=== PATIENT | female | born 1980 | race Caucasian/White ===

== ENCOUNTER 2022-01-24 14:50 | Emergency (ER) | payer OTHER, SELFPAY ==
[2022-01-24 15:35] VITALS: BP 139/85; PULSE 79; RESP 18; TEMP 36.5; O2SAT 100; BMI 32.8
--- NOTE | 2022-01-24 17:15 | CRLHL7_ITS ---
For Patients: As a result of the Century Cures Act, medical imaging exams and procedure reports are released immediately into your electronic medical record. You may view this report before your referring provider. If you have questions, please contact your health care provider. INDICATION: Right lower quadrant pain. TECHNIQUE: CT abdomen and pelvis acquired with 100 cc Omnipaque 350 IV contrast. COMPARISON: None. FINDINGS: Lower chest: Unremarkable. Liver: Unremarkable. Normal in size and attenuation. No suspicious masses. Gallbladder and bile ducts: Unremarkable. No stones or inflammation. No biliary dilatation. Pancreas: Unremarkable. No mass or inflammation. Spleen: Unremarkable. Normal in size. No masses. Adrenal glands: Unremarkable. No nodules. Kidneys: Unremarkable. No suspicious masses, stones, or hydronephrosis. GI tract: Mild colonic diverticulosis. Focal area of fat necrosis about the sigmoid colon. Normal in caliber. No sign of mass or inflammation. Normal appendix. Vasculature: Abdominal aorta is normal in caliber. Mesenteric arteries are patent. Lymph nodes: No lymphadenopathy. Peritoneum/Abdominal Wall: Unremarkable. No sign of mass or infiltration. No free air or significant free fluid. Pelvis: Unremarkable. Bones: Nonspecific sclerotic changes about the bilateral sacral bones adjacent to the SI joint. IMPRESSION: Findings suggestive of acute uncomplicated diverticulitis. No drainable fluid collections. Please note that all CT scans at this facility use dose modulation, iterative reconstruction, and/or weight-based dosing when appropriate to reduce radiation dose to as low as reasonably achievable. Dictated by Perry Breen MD @ 01/24/2022 6:42:26 PM (Electronically Signed)
--- NOTE | 2022-01-24 17:18 | ED_ITS ---
HPI - Abdominal Pain General Chief Complaint: Abdominal Pain Stated Complaint: Abdominal pain Time Seen by Provider: 01/24/22 16:33 History of Present Illness HPI narrative: This 41-year-old female comes in reporting 3 days of abdominal pain. She states the pain is in her lower abdomen and is now more localized in the right lower quadrant. She does not report any specific nausea or intolerance of food. She has not had any fevers. She states that the pain is worse with certain mov ements. Related Data Home Medications Medication Instructions Recorded Confirmed duloxetine 30 mg capsule,delayed cap PO 01/24/22 01/24/22 release Allergies Allergy/AdvReac Type Severity Reaction Status Date / Time No Known Drug Allergies Allergy Verified 01/24/22 17:56 Review of Systems Status of ROS Reports: 10 or more systems reviewed and unremarkable except as noted in History and below Narrative Constitutional: No fevers, no weight gain or loss. Eyes: No discharge. No vision changes. HENT: No congestion, no sore throat, no ear pain. Cardiovascular: No chest pain, no palpitations. Respiratory: No shortness of breath, no wheezes, no cough. Gastrointestinal: No vomiting, no diarrhea. Right lower quadrant abdominal pain. Genitourinary: No dysuria, no hematuria. Musculoskeletal: Normal range of motion. Skin: No rashes, no pruritis. Neurological: No dizziness, weakness, sensory change, speech change. Endo/Heme/Allergies: No bruising or bleeding. No polydipsia. Pysch: no suicidality, no anxiety, no insomnia. All other systems reviewed and are negative. PFSH PFSH Social History Smoking Status: Former smoker Do you use any of these nicotine containing products: None Second hand tobacco smoke exposure: No How often do you have a drink containing alcohol: 2-3 times a week How many standard drinks containing alcohol do you have on a typical day: 5 or 6 How often do you have six or more drinks on one occasion: Weekly AUDIT-C Alcohol total score: 8 Non-prescribed substance use: denies use Exam Narrative: Exam Narrative: Constitutional: Well-developed, well-nourished, no acute distress. HEENT: Normocephalic, atraumatic. Neck: Normal range of motion. Nontender. Supple. Heart: Regular. No murmurs. Normal rate. Intact distal pulses. Lungs: Clear to auscultation. No chest discomfort. No wheezes, rhonchi, or rales. Abdomen: Decreased bowel sounds. Tenderness localized at McBurney's point. D istinct rebound tenderness. Genitalia: Deferred. Back: No midline tenderness. Normal range of motion. Extremities: Normal range of motion. No injury. Skin: Intact. No rash. Warm. No erythema or pallor. Neurologic: No altered sensation. No weakness. Alert and oriented. Psychiatric: No suicidality. No anxiety or depression. No insomnia. Nursing notes and vitals signs are reviewed. Const: Vital Signs, click to edit/add: Vital Signs - 24 hr 01/24/22 15:35 01/24/22 18:15 Temperature 97.7 F Pulse Rate [Right Pulse Oximeter] 79 65 Respiratory Rate 18 Blood Pressure [Ri ght Upper Arm] 139/85 121/79 Pulse Oximetry 100 99 Oxygen Delivery Me thod Room Air Room Air Course Vital Signs Vital signs: Initial Vital Signs Temperature 97.7 F 01/24/22 15:35 Temperature Source Temporal Artery Scan 01/24/22 15:35 Pulse Rate 79 01/24/22 15:35 Respiratory Rate 18 01/24/22 15:35 Blood Pressure 139/85 01/24/22 15:35 Blood Pressure Mean 103 01/24/22 15:35 Blood Pressure Position Sitting 01/24/22 15:35 Pulse Oximetry 100 01/24/22 15:35 Oxygen Delivery Method 01/24/22 15:35 Vital Signs Temperature 97.7 F 01/24/22 15:35 Pulse Rate 79 01/24/22 15:35 Respiratory Rate 18 01/24/22 15:35 Blood Pressure 139/85 01/24/22 15:35 Pulse Oximetry 100 01/24/22 15:35 Oxygen Delivery Method 01/24/22 15:35 Temperature 97.7 F 01/24/22 15:35 Pulse Rate 65 01/24/22 18:15 Respiratory Rate 18 01/24/22 15:35 Blood Pressure 121/79 01/24/22 18:15 Pulse Oximetry 99 01/24/22 18:15 Oxygen Delivery Method 01/24/22 18:15 MDM - Abdominal Pain MDM Narrative Medical decision making narrative: This patient comes in with lower abdominal pain as described above. She had rather distinct and severe rebound tenderness on exam. An IV was established and labs were drawn. She does have a slightly elevated white blood count. CT imaging of the abdomen and pelvis does show evidence of acute diverticulitis. The patient received an IV dose of Toradol for pain relief. Prescription for Augmentin and Toradol is also provided. I did discuss signs and symptoms that indicate a need for return and re-evaluation. Lab Data Labs: Lab Results 01/24/22 01/24/22 Range/Units 17:35 17:35 WBC 12.76 H (4.50-11.00) K/uL RBC 4.53 (4.00-5.20) m/uL Hgb 13.7 (12.0-16.0) gm/dL Hct 40.8 (33.0-51.0) % MCV 90 (80-100) fL MCH 30 (26-34) pg MCHC 34 (32-36) gm/dL RDW Coeff of Kasandra 13.1 (11.5-15.5) % Plt Count 298 (140-440) K/uL Neut % (Auto) 65.3 (42.0-72.0) % Lymph % (Auto) 26.8 (20-44) % [place] % (Auto) 5.3 (0.0-11.0) % Eos % (Auto) 2.0 (0.0-7.0) % Baso % (Auto) 0.5 (0.0-3.0) % Neut # (Auto) 8.30 H (1.7-7.0) K/uL Lymph # (Auto) 3.40 H (0.90-2.90) K/uL [place] # (Auto) 0.70 (0.00-0.90) K/UL Eos # (Auto) 0.30 (0.00-0.50) K/uL Baso # (Auto) 0.10 (0.00-0.30) K/uL Abs Immat Gran (auto) 0.01 (0.00-0.30) K/uL Sodium 139 (135-149) mmol/L Potassium 3.9 (3.6-5.1) mmol/L Chloride 104 (96-114) mmol/L Carbon Dioxide 22 (20-32) mmol/L BUN 18 (5-24) mg/dL Creatinine 1.0 (0.5-1.5) mg/dL Estimated Creat Clear 64.58 Estimated GFR 73 ml/min Glucose 86 (60-115) mg/dL Calcium 9.4 (8.4-10.6) mg/dL Imaging Data CT scan - abdomen: Radiologist's impression: Findings suggestive of acute uncomplicated diverticulitis. No drainable fluid collections. Discharge Plan Discharge Clinical Impression: Diverticulitis Patient Disposition: Home, Self-Care Condition: Stable Additional Instructions: Take medications as prescribed. Increase diet as tolerated. Follow up with MD or return if worsening symptoms occur. Prescriptions: No Action duloxetine 30 mg capsule,delayed release(DR/EC) PO Follow Up/Referrals: Yessi Bermudez, G[employer] COLLECTION SYSTEM OPERATOR [Primary Care Provider] - Stand Alone Forms: [facility] Info Instructions
[2022-01-24 17:45] LABS: Basophils Percent Auto 0.5 % (0.0-3.0); Hematocrit 40.8 % (33.0-51.0); Hemoglobin* 13.7 gm/dL (12.0-16.0); Immature Granulocytes Abs Auto 0.01 K/uL (0.00-0.30); Lymphocytes Percent Auto 26.8 % (20-44); Mean Corpuscular HGB Conc 34 gm/dL (32-36); Mean Corpuscular Hemoglobin 30 pg (26-34); Mean Corpuscular Volume 90 fL (80-100); Monocytes Percent Auto 5.3 % (0.0-11.0); Neutrophils Percent Auto 65.3 % (42.0-72.0); Platelet Count* 298 K/uL (140-440); RDW Coefficient of Variation % 13.1 % (11.5-15.5); Red Blood Count 4.53 m/uL (4.00-5.20); White Blood Count* 12.76 K/uL (4.50-11.00)
[2022-01-24 17:56] LABS: Chloride* 104 mmol/L (96-114); Potassium* 3.9 mmol/L (3.6-5.1); Sodium* 139 mmol/L (135-149)
[2022-01-24 17:59] LABS: Carbon Dioxide* 22 mmol/L (20-32); Est. Creatinine Clearance* 64.58; Estimated Glomerular Filt Rate 73 ml/min
[2022-01-24 18:00] LABS: Blood Urea Nitrogen* 18 mg/dL (5-24); Calcium* 9.4 mg/dL (8.4-10.6); Glucose* 86 mg/dL (60-115)
[2022-01-24 18:15] VITALS: BP 121/79; PULSE 65; O2SAT 99
[2022-01-24 18:18] LABS: Slide Review Reflex No
[2022-01-24] MEDS: KETOROLAC 30 MG/ML inj IVP (19:17)
[2022-01-24 19:30] VITALS: BP 136/94; PULSE 69; O2SAT 99
== END 2022-01-24 19:32 | disposition home or self-care (01) ==
PROVIDERS: Emergency Provider Emergency Medicine Emergency Medical Services; PCP Nurse Practitioner Family
DX: K57.92 Diverticulitis of intestine, part unspecified, without perforation or abscess without bleeding (principal)
CPT/HCPCS: 36415; 74177; 80048; 85025; 96374; 99284; 99285; J1885; Q9967

== ENCOUNTER 2022-02-18 09:42 | Outpatient (CLI) | payer OTHER, SELFPAY ==
[2022-02-18 11:21] LABS: Albumin* 4.6 g/dL (3.3-5.0)
[2022-02-18 11:22] LABS: Chloride* 103 mmol/L (96-114); Potassium* 5.1 mmol/L (3.6-5.1); Sodium* 138 mmol/L (135-149)
[2022-02-18 11:24] LABS: Alkaline Phosphatase* 61 U/L (40-150); Aspartate Amino Transferase* 24 U/L (12-35); Bilirubin Total* 0.5 mg/dL (0.1-1.5); Blood Urea Nitrogen* 18 mg/dL (5-24); Carbon Dioxide* 26 mmol/L (20-32); Cholesterol* 248 mg/dL (90-199); Creatinine* 0.9 mg/dL (0.5-1.5); Estimated Glomerular Filt Rate 83 ml/min; Total Protein* 7.4 g/dL (6.0-8.3)
[2022-02-18 11:25] LABS: Alanine Aminotransferase* 21 U/L (4-35); Calcium* 9.7 mg/dL (8.4-10.6); Glucose* 90 mg/dL (60-115); HDL Cholesterol* 64 mg/dL (>=50); LDL Cholesterol Calculated 144 mg/dL (<100); Triglycerides* 200 mg/dL (40-149)
[2022-02-18 11:41] LABS: Vitamin D 25 Hydroxy* 71 ng/mL (30-80)
[2022-02-18 12:13] LABS: Vitamin B12* 654 pg/mL (243-894)
== END 2022-02-18 09:43 | disposition home or self-care (01) ==
PROVIDERS: PCP Family Medicine; Visit Provider Family Medicine
DX: Z01.419 Encounter for gynecological examination (general) (routine) without abnormal findings (principal); R53.83 Other fatigue; F41.9 Anxiety disorder, unspecified; E56.9 Vitamin deficiency, unspecified; Z13.6 Encounter for screening for cardiovascular disorders
CPT/HCPCS: 80053; 80061; 82306; 82607; 84443

== ENCOUNTER 2022-08-20 07:36 | Outpatient (CLI) | payer OTHER, SELFPAY ==
--- NOTE | 2022-08-20 07:45 | CRLHL7_ITS ---
For Patients: As a result of the Century Cures Act, medical imaging exams and procedure reports are released immediately into your electronic medical record. You may view this report before your referring provider. If you have questions, please contact your health care provider. BILATERAL SCREENING MAMMOGRAM WITH COMPUTER-AIDED DETECTION AND TOMOSYNTHESIS TECHNIQUE: CC and MLO views were obtained. These mammographic images have been obtained using full-field digital technique. These mammographic images were interpreted with the benefit of computer-aided detection. Breast Tomosynthesis was used in this interpretation. COMPARISON FILM: Baseline. FINDINGS: There are scattered areas of fibroglandular density IMPRESSION: There is no radiographic evidence for malignancy. ASSESSMENT: BI-RADS Category 1: Negative RECOMMENDATION: Routine screening mammogram in 1 year. A lay language report of this examination will be provided to the patient. Perez Awad M.D. Diagnostic Radiologist [email or web address] Transcribed: 1:22 [email or web address] soto/Dictated by: Perez Awad MD @ 08/20/2022 10:09:00 AM (Electronically Signed)
== END 2022-08-20 07:37 | disposition home or self-care (01) ==
LOC: MAMMO 07:38
PROVIDERS: PCP Family Medicine; Visit Provider Family Medicine
DX: Z12.31 Encounter for screening mammogram for malignant neoplasm of breast (principal)
CPT/HCPCS: 77063; 77067

== ENCOUNTER 2023-09-16 09:02 | Outpatient (CLI) | payer OTHER, SELFPAY ==
--- OUTSIDE RECORDS SUMMARY | 2023-09-16 09:05 | XMS_ITS | Clinical Summary ---
Author Organization [facility] Address [place], [place] [address] Care Team Providers Care Atomizer Assembler Name Role Phone Clinic, No Pcp Or Primary Care Provider Unavaila ble Allergies No known active allergies Medications Medication Sig Dispensed Refills Start Date End Date Status cyclobenzaprine (FLEXERIL) 10 mg tabletIndications:Ac ely shoshone bilateral low back pain, unspecified whether sciatica present Take 1 Tablet (10 mg) by mouth 3 times daily if needed for Muscle Spasm. 12 Tablet 09/04/2023 Active predniSONE (DELTASONE) 20 mg tabletIndications:Ac ely shoshone bilateral low back pain, unspecified whether sciatica present Take 2 Tablets (40 mg) by mouth once daily with a meal for 5 days. 10 Tablet 09/04/2023 09/09/2023 Encounters Date Type Department Care Team Description 09/04/2023 9:02 AM CDT - 09/04/2023 9:56 AM CDT Emergency [facility] [address] [address] Emmanuel Shearer DO Acute bilateral low back pain, unspecified whether sciatica present (Primary Dx) Discharge Disposition: Home Self Care 09/03/2023 5:05 PM CDT - 09/03/2023 6:51 PM CDT Emergency [facility] [address] [address] from Last 3 Months Social History Tobacco Use Types Packs/Day Years Used Date Smoking Tobacco: Never Assessed Sex and Gender Information Value Date Recorded Sex Assigned at Not on file Gender Identity Not on file Sexual Orientation Not on file Last Filed Vital Signs Vital Sign Reading Time Taken Comments Blood Pressure 144/98 09/04/2023 9:17 AM CDT Pulse 77 09/04/2023 9:17 AM CDT Temperature 36.7 ??C (98.1 ??F) 09/04/2023 9:17 AM CD T Respiratory Rate 20 09/04/2023 9:17 AM CDT Oxygen Saturation 97% 09/04/2023 9:17 AM CDT Inhaled Oxygen Concentration - - Weight 90.7 kg (200 lb) 09/04/2023 9:17 AM CDT Height 162.6 cm (5' 4) 09/04/2023 9:17 AM CDT Body Mass Index 34.33 09/04/2023 9:17 AM CDT Plan of Treatment Health Maintenance Due Date Last Done Comments Tdap 1992 Depression screening for age 12+ 1993 HIV for age 15-65 1996 BMI (ht and wt on same day) for age 18+ 07/25/1999 Hepatitis C screening for ag e 18-79 07/25/1999 Tetanus booster 2001 Pap test for age 21-65 2002 COVID-19 vaccine series ( - 2022-24 season) 2022 09/04/2020, 08/14/2020 Influenza for age 9-49 12/20/2023 Pneumococcal series for age 6-64 Aged Out No longer eligible b ased on patient's age to complete this topic Procedures Procedure Name Priority Date/Time Associated Diagnosis Comments URINE STAT 09/04/2023 9:44 AM CDT UA W/ SEDIMENT EXAM REFLEXED PER CRITERIA STAT 09/04/2023 9:44 AM CDT from Last 3 Months Results * UA W/ SEDIMENT EXAM REFLEXED PER CRITERIA (09/04/2023 9:44 AM CDT) COLOR Yellow Yellow Color 09/04/2023 9:47 AM CDT [facility] CLARITY Clear Clear Clarity 09/04/2023 9:47 AM CDT [facility] SPECIFIC GRAVITY,URINE 1.015 1.010, 1.015, 1.020, 1.025 09/04/2023 9:47 AM CDT [facility] PH,URINE 7.0 6.0, 7.0, 8.0, 5.5, 6.5, 7.5, 8.5 09/04/2023 9:47 AM CDT [facility] UROBILINOGEN,Q UALITATIVE Normal Normal EU/dl 09/04/2023 9:47 AM CDT [facility] PROTEIN, URINE Negative Negative mg/dL 09/04/2023 9:47 AM CDT [facility] GLUCOSE, URINE Negative Negative mg/dL 09/04/2023 9:47 AM CDT [facility] KETONES,URINE Negative Negative mg/dL 09/04/2023 9:47 AM CDT [facility] BILIRUBIN,URIN E Negative Negative 09/04/2023 9:47 AM CDT [facility] OCCULT BLOOD,URINE Negative Negative 09/04/2023 9:47 AM CDT [facility] NITRITE Negative Negative 09/04/2023 9:47 AM CDT [facility] LEUKOCYTE ESTERASE Negative Negative 09/04/2023 9:47 AM CDT [facility] Urine URINE SPECIMEN / Unknown Non-Blood / Unknown 09/04/2023 9:44 AM CDT 09/04/2023 9:44 AM CDT Emmanuel Shearer DO URINE Performing Organization Address City/[facility] Co de Phone Number [facility] [address] [place] [address] * URINE (09/04/2023 9:44 AM CDT) ,URIN E Negative Negative 09/04/2023 9:48 AM CDT [facility] Urine URINE SPECIMEN / Unknown Non-Blood / Unknown 09/04/2023 9:44 AM CDT 09/04/2023 9:44 AM CDT Emmanuel Shearer DO URINE Performing Organization Address [facility] Co de Phone Number [facility] [address] [place] [address] from Last 3 Months Care Teams Atomizer Assembler Relationship Specialty Start Date End Date Clinic, No Pcp Or . PCP - General 09/04/23
--- OUTSIDE RECORDS SUMMARY | 2023-09-16 09:05 | XMS_ITS | Clinical Summary ---
Author Organization [facility] Address [address] [place] [address] Care Team Providers Care Back Sewer Name Role Phone Unavailable Primary Care Provider Unavailabl e Source Comments Patient records contain information from all sites at [facility]. For routine questions regarding patient records, call [phone] during business hours, M-F 8:00 AM - 5:00 PM Central Time. Record requests for emergency care only can be directed to [phone] at any time.[facility] Allergies No known active allergies Medications No known medications Active Problems No known active problems Social History Tobacco Use Types Packs/Day Years Used Date Smoking Tobacco: Never Assessed Nutrition Answer Date Recorded Nutrition: EVOO Fat Source Unknown 04/02 Nutrition: Servings of Fruits/Vegetables per Day Not on file 04/02/2022 Dental Answer Date Recorded Dental: Regular Dentist Unknown 04/02/20 Sex and Gender Information Value Date Recorded Sex Assigned at Not on file Gender Identity Not on file Sexual Orientation Not on file Last Filed Vital Signs Vital Sign Reading Time Taken Comments Blood Pressure 145/102 04/02/2022 12:07 PM [facility] Pulse 69 04/02/2022 12:07 PM [facility] Temperature 36.5 ??C (97.7 ??F) 04/02/2022 12:[address] Respiratory Rate - - Oxygen Saturation 100% 04/02/2022 12:03 PM [facility] Inhaled Oxygen Concentration - - Weight 90.4 kg (199 lb 4.7 oz) 04/02/2022 12:03 PM [facility] Height 165 cm (5' 4.96) 04/02/2022 12:03 PM [facility] Body Mass Index 33.2 04/02/2022 12:03 PM [facility] Plan of Treatment Health Maintenance Due Date Last Done Comments Cervical Cancer Screening 1981 HIV Screening 1981 Hepatitis C Screening 1981 Lipid (Cholesterol) Screening 1981 Mammogram 1981 DTaP,Tdap,and Td Vaccines (1 - Tdap) 2000 Hepatitis B Vaccines (1 of 3 - 19+ 3-dose series) 2000 COVID-19 Vaccine (3 - 2022-2 4 season) 2022 09/04/2020, 08/14/2020 Influenza Vaccine (#1) 2023 Depression Screening (Annual PHQ-2) 04/20/2023 HPV Vaccines Aged Out No longer eligi ble based on patient's age to complete this topic Pneumococcal vaccine (0-64 years) Aged Out No longer eligible b ased on patient's age to complete this topic [address] [facility] [id number]
--- OUTSIDE RECORDS SUMMARY | 2023-09-16 09:05 | XMS_ITS | Referral Summary ---
Author Organization [facility] Address [address] [place] [address] Care Team Providers Care Finisher Brush Name Role Phone Unavailable Primary Care Provider Unavailabl e Source Comments Patient records contain information from all sites at [facility]. For routine questions regarding patient records, call [phone] during business hours, M-F 8:00 AM - 5:00 PM Central Time. Record requests for emergency care only can be directed to [phone] at any time.[facility] Allergies No known active allergies Medications No [...] Comments Blood Pressure 145/102 04/02/2022 12:07 PM MILK DRIVER Pulse 69 04/02/2022 12:07 PM MILK DRIVER Temperature 36.5 ??C (97.7 ??F) 04/02/2022 12:[address] Respiratory Rate - - Oxygen Saturation 100% 04/02/2022 12:03 PM MILK DRIVER Inhaled Oxygen Concentration - - Weight 90.4 kg (199 lb 4.7 oz) 04/02/2022 12:03 PM MILK DRIVER Height 165 cm (5' 4.96) 04/02/2022 12:03 PM MILK DRIVER Body Mass Index 33.2 04/02/2022 12:03 PM MILK DRIVER Plan of Treatment Not on file [address] [place] [id number]
--- OUTSIDE RECORDS SUMMARY | 2023-09-16 09:05 | XMS_ITS ---
Author Organization [facility] Address [address] [place] [address] Care Team Providers Care Chief Scientific Officer Name Role Phone Unavailable Unavailable Unavailable Surgery Details Not on file Complications Check Surgery Details section. Procedure Estimated Blood Loss Check Surgery Details section. Procedure Findings Check Surgery Details section. Procedure Specimens Taken Check Surgery Details section.
--- NOTE | 2023-09-16 09:15 | CRLHL7_ITS ---
For Patients: As a result of the Century Cures Act, medical imaging exams and procedure reports are released immediately into your electronic medical record. You may view this report before your referring provider. If you have questions, please contact your health care provider. BILATERAL SCREENING MAMMOGRAM WITH COMPUTER-AIDED DETECTION AND TOMOSYNTHESIS TECHNIQUE: CC and MLO views were obtained. These mammographic images have been obtained using full-field digital technique. These mammographic images were interpreted with the benefit of computer-aided detection. Breast Tomosynthesis was used in this interpretation. COMPARISON FILM: 08/20/22. FINDINGS: There are scattered areas of fibroglandular density IMPRESSION: There is no radiographic evidence for malignancy. ASSESSMENT: BI-RADS Category 1: Negative RECOMMENDATION: Routine screening mammogram in 1 year. A lay language report of this examination will be provided to the patient. Perez wAad M.D. Diagnostic Radiologist [email or web address] ITZEL/Dictated by: Perez Awad MD @ 09/16/2023 11:00:00 AM (Electronically Signed)
== END 2023-09-16 09:03 | disposition home or self-care (01) ==
LOC: MAMMO 09:02
PROVIDERS: PCP Family Medicine; Visit Provider Family Medicine
DX: Z12.31 Encounter for screening mammogram for malignant neoplasm of breast (principal)
CPT/HCPCS: 77063; 77067

== ENCOUNTER 2024-06-20 08:32 | Outpatient (CLI) | payer OTHER, SELFPAY ==
[2024-06-21 22:25] LABS: HPV Source Cervix; HPV, High Risk by TMA Not Detected
[2024-06-28 14:45] LABS: Pap Test Reviewed by Path Done
== END 2024-06-20 08:33 | disposition home or self-care (01) ==
PROVIDERS: PCP Family Medicine; Visit Provider Family Medicine
DX: Z13.228 Encounter for screening for other metabolic disorders (principal); Z13.220 Encounter for screening for lipoid disorders; Z13.29 Encounter for screening for other suspected endocrine disorder; Z11.51 Encounter for screening for human papillomavirus (HPV); Z12.4 Encounter for screening for malignant neoplasm of cervix
CPT/HCPCS: 80048; 80061; 84439; 84443; 87624; 87625; 88141; 88142

== ENCOUNTER 2024-06-23 11:53 | Emergency (ER) | payer OTHER, SELFPAY ==
[2024-06-23 11:55] VITALS: BP 135/89; PULSE 97; RESP 18; TEMP 37.4; O2SAT 98; BMI 33.5
--- OUTSIDE RECORDS SUMMARY | 2024-06-23 11:55 | XMS_ITS | Clinical Summary ---
Author Organization [employer] [facility] Address [address] [place] [id number] Care Team Providers Care Rag Cutting Machine Tender Name Role Phone Clinic, No Pcp Or Primary Care Provider Unavaila ble Allergies No known active allergies Medications cyclobenzaprine (FLEXERIL) 10 mg tabletIndication s:Acute bilateral low back pain, unspecified whether sciatica present Take 1 Tablet (10 mg) by mouth 3 times daily if needed for Muscle Spasm. 12 Tablet 09/04/2023 Active Social History Tobacco Use Types Packs/Day Years Used Date Smoking Tobacco: Never Assessed Comments Unknown Sex and Gender Information Value Date Recorded Sex Assigned at Not on file Legal Sex Female 2:47 PM CDT Gender Identity Not on file Sexual Orientation Not on file Last Filed Vital Signs Vital Sign Reading Time Taken Comments Blood Pressure 144/98 09/04/2023 9:17 AM CDT Pulse 77 09/04/2023 9:17 AM CDT Temperature 36.7 C (98.1 F) 09/04/2023 9:17 AM CDT Respiratory Rate 20 09/04/2023 9:17 AM CDT [...] age 21-65 2002 COVID-19 vaccine series ( season) 2023 09/04/2020, 08/14/2020 Influenza for age 9-49 12/20/2023 Pneumococcal series for age 6-49 Aged Out No longer eligible b ased on patient's age to complete this topic Care Teams Rag Cutting Machine Tender Relationship Specialty Start Date End Date Clinic, No Pcp Or . PCP - General 09/04/23
--- NOTE | 2024-06-23 12:17 | ED.GENADULT ---
HPI - General Adult General Date Seen: 06/23/24 Chief complaint: Abdominal Pain Stated complaint: abdominal pain, sent from urgent care Time Seen by Provider: 06/23/24 11:56 History of Present Illness HPI narrative: Patient is a 43-year-old woman who is here for evaluation of lower abdominal pain which started a couple of days ago and has been constant ever since. She says she started go bowling and became worried that it might be her appendix. She does have a history of diverticulitis diagnosed by CT scan a couple of years ago, she says this pain feels totally different however. She is a little vague on exactly how it is different except that is maybe worse. She also says this time she has nausea and just generally does not feel good where his last him it was just the pain. She has not had any vomiting. Has had some diarrhea the past couple of days which is nonbloody. She has not had any urinary symptoms, denies any prior history of pelvic pathology. No new sexual partners or concerns about exposure to STDs. She has had a tubal ligation, last menses was last week and was normal. Denies other abdominal surgeries. He started taking a holistic medicine called Oxy-Powder, described as follows on the product website: Natural colon cleanser Oxy-Powder is a natural colon cleanser made from magnesium and citric acid that have been exposed to oxygen. It is a scientifically formulated product consisting of complex oxides of magnesium and peroxides of magnesium stabilized with ozone and oxygen at high pressure and low temperature to ensure oxygen is stable and non-reactive until Oxy-Powder is ingested and slowly released in the acidic environment of the stomach. Oxy-Powder helps gently loosen stool that is stuck and cleans out the entire digestive system. She also notes that she started phentermine for weight loss on Thursday as well. Related Data Home Medications ?Medication ?Instructions ?Recorded ?Confirmed cholecalciferol (vitamin D3) 125 125 mcg PO QDAY 02/18/22 06/23/24 mcg (5,000 unit) capsule magnesium glycinate 100 mg (as 300 mg PO QDAY 02/18/22 06/23/24 glycinate) tablet levocarnitine 500 mg capsule 750 mg PO .QD 06/20/24 06/23/24 (L-Carnitine) Previous Rx's ?Medication ?Instructions ?Recorded phentermine 30 mg capsule 30 mg PO QDAY #30 caps 06/20/24 levothyroxine 25 mcg tablet 25 mcg PO QDAY #90 tabs 06/21/24 amoxicillin 875 mg-potassium 1 tab PO BID #20 tabs 06/23/24 clavulanate 125 mg tablet ketorolac 10 mg tablet 10 mg PO Q8H 1 day #14 tabs 06/23/24 Allergies Allergy/AdvReac Type Severity Reaction Status Date / Time No Known Drug Allergies Allergy Verified 06/23/24 12:02 Review of Systems Status of ROS: Reports: 10 or more systems reviewed and unremarkable except as noted in History and below [facility] Medical History History of abnormal cervical Pap smear ?Z87.42 - Personal history of other diseases of the female genital tract (ICD-10) Anxiety ?F41.9 - Anxiety disorder, unspecified (ICD-10) Depression ?F32.A - Depression, unspecified (ICD-10) Fatigue ?R53.83 - Other fatigue (ICD-10) Hx of diverticulitis of colon (~01/2022) ?Z87.19 - Personal history of other diseases of the digestive system (ICD-10) Surgical History Status post tubal ligation (2002) ?Z98.51 - Tubal ligation status (ICD-10) History of vaginal delivery History of loop electrical excision procedure (LEEP) (2009) ?Z98.890 - Other specified postprocedural states (ICD-10) Family History Father Aortic dissection, Onset Age: 43 Mother Stroke, Onset Age: 53 Maternal Grandfather Colon cancer Maternal Grandmother Heart disease Breast cancer, Onset Age: 70 Diabetes Social History Narrative: Single, 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[place], 3 kids, Exercise 3 times a week by walking 10,000 steps , non smoker quit in 2007, 8 pack years social drinker 4/week What is your current living situation?: I presently have a place to live Problems where you live: no known problems In the past 12 months, utilities in danger of being shut off: no In past 12 months, lack of transportation kept you from medical appts, meetings, work, or getting things needed for daily living: no In the past 12 mos, have been you worried that your food would run out before you had money to buy more?: never true In the past 12 mos, the food you bought just didn't last and you didn't have money to buy more?: never true Smoking Status: Former smoker Do you use any of these nicotine containing products: None Second hand tobacco smoke exposure: No How often do you have a drink containing alcohol: 2-3 times a week How many standard drinks containing alcohol do you have on a typical day: 5 or 6 How often do you have six or more drinks on one occasion: Weekly AUDIT-C Alcohol total score: 8 Non-prescribed substance use: denies use How often does anyone, including family, friends and others, physically hurt you: never How often does anyone, including family, friends and others, insult or talk down to you: never How often does anyone, including family, friends and others, threaten you with harm: never How often does anyone, including family, friends and others, scream or curse at you: never Exam Narrative: Exam Narrative: Vital signs reviewed In general, alert, nontoxic woman. Head: Normocephalic, atraumatic. Eyes: Sclera clear. Pupils equal and reactive. ENT: Mucous membranes moist. Neck: Supple without adenopathy. Heart: Regular rate and rhythm without murmur. Lungs: Clear. No increased work of breathing, crackles or wheezes. Abdomen: Abdomen is soft, she has diffuse tenderness to palpation, perhaps a little bit worse in the lower abdomen. She does not have specific McBurney's tenderness, she does not have any rebound guarding or rigidity. Bowel sounds are present. Extremities: Well perfused, pulses intact. No significant edema. Neurologic: Alert, conversant. Speech fluent, face symmetric. Moves all extremities equally. Skin: Warm, dry well perfused. Affect: Tearful peer Const: Vital Signs, click to edit/add: Vital Signs - 24 hr 06/23/24 11:55 Temperature 99.4 F Pulse Rate [Right Pulse Oximeter] 97 Respiratory Rate 18 Blood Pressure [Ri ght Upper Arm] 135/89 Pulse Oximetry 98 Oxygen Delivery Me thod Room Air Course Course ED Course: Differential diagnosis is broad at this time and includes appendicitis, diverticulitis, ovarian cyst, ectopic , urinary tract infection, pyelonephritis, pancreatitis, cholecystitis or biliary colic among others. Will obtain labs, UA, I think an abdominal CT scan is reasonable to evaluate for possible diverticulitis as well as other diagnoses. Initially declined anything for pain but did agree that Toradol might be helpful to try. Would suggest that she discontinue the holistic medication as this is probably giving her diarrhea. Labs are notable for mildly elevated white blood cell count of 14.8. Hemoglobin is normal. Metabolic panel and lactate are normal, LFTs normal, CRP elevated at 5.5. Lipase of 43. Urinalysis is negative, test is negative. CT scan by my review showed stranding and inflammation around the descending and sigmoid colon suggestive of diverticulitis. Final radiology read reviewed as showing acute uncomplicated diverticulitis no other findings. She is feeling much better after Toradol, looks comfortable, reviewed the diagnosis. Last time she did well with Augmentin and Toradol so will prescribe that again. See primary care if not improving over the next week, return for worsening such as increasing pain, fevers, bloody stools etcetera. Vital Signs Vital signs: Initial Vital Signs Temperature 99.4 F 06/23/24 11:55 Temperature Source Temporal Artery Scan 06/23/24 11:55 Pulse Rate 97 06/23/24 11:55 Pulse Rhythm Regular 06/23/24 11:55 Pulse Strength 3+ Normal 06/23/24 11:55 Respiratory Rate 18 06/23/24 11:55 Blood Pressure 135/89 06/23/24 11:55 Blood Pressure Mean 104 06/23/24 11:55 Blood Pressure Position Sitting 06/23/24 11:55 Pulse Oximetry 98 06/23/24 11:55 Oxygen Delivery Method Room Air 06/23/24 11:55 Vital Signs Temperature 99.4 F 06/23/24 11:55 Pulse Rate 97 06/23/24 11:55 Respiratory Rate 18 06/23/24 11:55 Blood Pressure 135/89 06/23/24 11:55 Pulse Oximetry 98 06/23/24 11:55 Oxygen Delivery Method Room Air 06/23/24 11:55 Temperature 99.4 F 06/23/24 11:55 Pulse Rate 97 06/23/24 11:55 Respiratory Rate 18 06/23/24 11:55 Blood Pressure 135/89 06/23/24 11:55 Pulse Oximetry 98 06/23/24 11:55 Oxygen Delivery Method Room Air 06/23/24 11:55 Medications Administered Medications: Discontinued Medications Generic Name Dose Route Start Last Admin Trade Name Freq PRN Reason Stop Dose Admin Sodium Chloride 500 mls @ 500 mls/hr 06/23/24 12:11 06/23/24 13:11 0.9 % Sodium Chloride 500 Ml IV 06/23/24 13:10 Infused .Q1H ONE Infusion Ketorolac Tromethamine 15 mg 06/23/24 12:11 06/23/24 12:30 Ketorolac 15 Mg/Ml Inj IVP 06/23/24 12:12 15 mg ONCE ONE Administration Ondansetron HCl 4 mg 06/23/24 12:11 06/23/24 12:30 Ondansetron 2 Mg/Ml Inj IVP 06/23/24 12:12 4 mg ONCE ONE Administration Medical Decision Making Lab Data Labs: Lab Results 06/23/24 06/23/24 Range/Units 12:30 13:13 WBC 14.77 H (4.50-11.00) K/uL RBC 4.39 (4.00-5.20) m/uL Hgb 12.8 (12.0-16.0) gm/dL Hct 38.3 (33.0-51.0) % MCV 87 (80-100) fL MCH 29 (26-34) pg MCHC 33 (32-36) gm/dL RDW Coeff of Kasandra 12.8 (11.5-15.5) % Plt Count 332 (140-440) K/uL Neut % (Auto) 71.9 (42.0-72.0) % Lymph % (Auto) 18.1 L (20-44) % [place] % (Auto) 8.7 (0.0-11.0) % Eos % (Auto) 0.9 (0.0-7.0) % Baso % (Auto) 0.3 (0.0-3.0) % Neut # (Auto) 10.60 H (1.7-7.0) K/uL Lymph # (Auto) 2.70 (0.90-2.90) K/uL [place] # (Auto) 1.30 H (0.00-0.90) K/UL Eos # (Auto) 0.10 (0.00-0.50) K/uL Baso # (Auto) 0.00 (0.00-0.30) K/uL Abs Immat Gran (auto) 0.00 (0.00-0.30) K/uL Imm/Tot Granulo (auto) 0.1 % Sodium 136 (135-149) mmol/L Potassium 4.2 (3.6-5.1) mmol/L Chloride 100 (96-114) mmol/L Carbon Dioxide 26 (20-32) mmol/L Anion Gap 10 (7-15) mEq/L BUN 12 (5-24) mg/dL Creatinine 0.9 (0.5-1.5) mg/dL Estimated Creat Clear 70.32 Estimated GFR 82 ml/min Glucose 96 (60-115) mg/dL Lactate 1.4 (0.5-1.9) mmol/L Calcium 9.1 (8.4-10.6) mg/dL Total Bilirubin 0.9 (0.1-1.5) mg/dL Direct Bilirubin 0.2 (0.0-0.5) mg/dL AST 17 (12-35) U/L ALT 16 (4-35) U/L Alkaline Phosphatase 59 (40-150) U/L C-Reactive Protein 5.5 H (0.5-1.0) mg/dL Total Protein 7.7 (6.0-8.3) g/dL Albumin 4.4 (3.3-5.0) g/dL Lipase 43 (23-300) U/L Urine Color Yellow (Yellow) Urine Appearance Clear (Clear) Urine pH 6.5 (5.0-8.5) Ur Specific [place] 1.010 (1.000-1.030) Urine Protein Negative (Negative) Urine Glucose (UA) Negative (Negative) Urine Ketones 1+ A (Negative) Urine Blood Trace-lysed A (Negative) Urine Nitrite Negative (Negative) Urine Bilirubin Negative (Negative) Urine Urobilinogen 0.2 (0.2-1.0) Ur Leukocyte Esterase Negative (Negative) Urine RBC 0-2 (0-2) Urine WBC 0-2 (0-5) Ur Squamous Epith Cells Few (None-Few) Urine Bacteria Few A (None) Urine HCG, Qual Negative (Negative) Imaging Data CT scan - abdomen: Attestation: I have reviewed the pertinent imaging results. Radiologist's impression: Patient: MATILDA MARIE Facility: [facility] RIS Site . Site : 1980 Study: CT-Abdomen/Pelvis W/ 95CC [id number] 2:31:12 PM Ordering Physician: Kylee Barksdale Final Report: Indication: Lower abdominal pain Technique: Volumetric multidetector CT images of the abdomen and pelvis were obtained after the administration of intravenous contrast. 95 cc Isovue 370 low osmolar intravenous contrast Comparison: CT abdomen and pelvis January 24, 2022 Findings: The lung bases are clear. The liver is normal in attenuation without intrahepatic biliary ductal dilatation. The portal vein is patent. The gallbladder is unremarkable without evidence of radiopaque calculus. There is no significant common biliary ductal dilatation or abrupt cut off. The spleen is normal in enhancement and size. The stomach and duodenum are grossly unremarkable. The pancreas is normal in enhancement without significant atrophy. The adrenal glands are unremarkable. The kidneys demonstrate preserved corticomedullary differentiation without evidence of obstructive uropathy. There is minimal fluid seen throughout the proximal colon with moderate focal thickening and pericolonic inflammation of the distal descending/proximal sigmoid colon with associated scattered diverticula commensurate with diverticulitis. The appendix is unremarkable. There is no significant mesenteric, retroperitoneal, or pelvic sidewall lymph nodes. The aorta is nonaneurysmal. There is no significant atherosclerotic disease appreciated. The solid pelvic viscera are grossly unremarkable. There is no free fluid or free air. There is mild diastasis of the rectus musculature. The lumbar vertebral body heights are grossly maintained with moderate multilevel degenerative disc disease. There is no evidence of displaced fracture or dislocation. Impression: 1. There is minimal fluid seen throughout the colon with moderate focal thickening and pericolonic inflammation of the distal descending/proximal sigmoid colon consistent with developing diverticulitis. No evidence of rim enhancing fluid. 2. No other acute intra-abdominal abnormalities are appreciated. Discharge Plan Discharge Clinical Impression: Diverticulitis Patient Disposition: Home, Self-Care Condition: Improved Instructions: Diverticulitis (DC) Additional Instructions: Take Augmentin as prescribed. You can use Toradol if needed for pain, otherwise you can use ibuprofen or Tylenol. You should gradually improve over the next week. If you are getting worse, have more significant pain, high fevers, uncontrolled vomiting, bloody stools etcetera return to the ER for repeat evaluation. See your primary doctor if you do not feel you are improving over the next week. Prescriptions: New amoxicillin-pot clavulanate 875-125 mg tablet 1 tab PO BID Qty: 20 0RF ketorolac 10 mg tablet 10 mg PO Q8H 1 Days Qty: 14 0RF No Action magnesium glycinate 100 mg tablet 300 mg PO QDAY Patient Comments: 2 tabs in AM, one at night cholecalciferol (vitamin D3) 125 mcg (5,000 unit) capsule 125 mcg PO QDAY L-Carnitine 500 mg capsule 750 mg PO .QD Rx Instructions: must administer with a meal/food phentermine 30 mg capsule 30 mg PO QDAY Qty: 30 2RF Rx Instructions: must administer 2 hours after breakfast levothyroxine 25 mcg tablet 25 mcg PO QDAY Qty: 90 1RF Follow Up/Referrals: Tony Ray MD [Primary Care Provider] - Stand Alone Forms: [email or web address] Info Instructions
--- OUTSIDE RECORDS SUMMARY | 2024-06-23 12:18 | XMS_ITS | Clinical Summary ---
Author Organization [facility] Address [address] [place] [id number] Care Team Providers Care Target Worker Name Role Phone Clinic, No Pcp Or [...] age to complete this topic Care Teams Target Worker Relationship Specialty Start Date End Date Clinic, No Pcp Or . PCP - General 09/04/23
[2024-06-23] MEDS: ONDANSETRON 2 MG/ML inj 4 MG IVP (12:30)
[2024-06-23] MEDS: 0.9 % SODIUM CHLORIDE 500 ML 500 ML IV (12:30)
[2024-06-23] MEDS: KETOROLAC 15 MG/ML inj IVP (12:30)
[2024-06-23 12:41] LABS: Lactate Sepsis w/Reflex* 1.4 mmol/L (0.5-1.9)
[2024-06-23 12:48] LABS: Basophils Percent Auto 0.3 % (0.0-3.0); Eosinophils Percent Auto 0.9 % (0.0-7.0); Hematocrit 38.3 % (33.0-51.0); Hemoglobin* 12.8 gm/dL (12.0-16.0); Immature Granulocytes Pct Auto 0.1 %; Lymphocytes Percent Auto 18.1 % (20-44); Mean Corpuscular HGB Conc 33 gm/dL (32-36); Mean Corpuscular Hemoglobin 29 pg (26-34); Mean Corpuscular Volume 87 fL (80-100); Monocytes Percent Auto 8.7 % (0.0-11.0); Neutrophils Percent Auto 71.9 % (42.0-72.0); Platelet Count* 332 K/uL (140-440); RDW Coefficient of Variation % 12.8 % (11.5-15.5); Red Blood Count 4.39 m/uL (4.00-5.20); White Blood Count* 14.77 K/uL (4.50-11.00)
[2024-06-23 12:49] LABS: Slide Review Reflex No
[2024-06-23 13:02] LABS: Albumin* 4.4 g/dL (3.3-5.0); Chloride* 100 mmol/L (96-114); Potassium* 4.2 mmol/L (3.6-5.1); Sodium* 136 mmol/L (135-149)
[2024-06-23 13:04] LABS: Blood Urea Nitrogen* 12 mg/dL (5-24); Creatinine* 0.9 mg/dL (0.5-1.5); Est. Creatinine Clearance* 70.32; Estimated Glomerular Filt Rate 82 ml/min
[2024-06-23 13:05] LABS: Alanine Aminotransferase* 16 U/L (4-35); Alkaline Phosphatase* 59 U/L (40-150); Anion Gap 10 mEq/L (7-15); Aspartate Amino Transferase* 17 U/L (12-35); Bilirubin Direct* 0.2 mg/dL (0.0-0.5); Bilirubin Total* 0.9 mg/dL (0.1-1.5); Calcium* 9.1 mg/dL (8.4-10.6); Carbon Dioxide* 26 mmol/L (20-32); Glucose* 96 mg/dL (60-115); Lipase* 43 U/L (23-300); Total Protein* 7.7 g/dL (6.0-8.3)
[2024-06-23 13:08] LABS: C Reactive Protein* 5.5 mg/dL (0.5-1.0)
[2024-06-23 13:33] LABS: Appearance Urine Clear (Clear); Bilirubin Urine Negative (Negative); Blood Urine Trace-lysed (Negative); Color Urine Yellow (Yellow); Glucose Urine Negative (Negative); Ketones Urine 1+ (Negative); Leukocyte Esterase Urine Negative (Negative); Nitrite Urine Negative (Negative); Protein Urine Negative (Negative); Urobilinogen Urine 0.2 (0.2-1.0); pH Urine 6.5 (5.0-8.5)
[2024-06-23 13:38] LABS: Ur HCG Qualitative* Negative (Negative)
[2024-06-23 13:47] LABS: Bacteria Urine Few; RBC Urine 0-2 (0-2); Squamous Epithelial Cell Urine Few (None-Few); WBC Urine 0-2 (0-5)
[2024-06-23 15:00] VITALS: BP 132/74; PULSE 78; RESP 18; O2SAT 98
[2024-06-23 15:05] VITALS: BP 135/89; PULSE 97; RESP 18; TEMP 37.4
== END 2024-06-23 15:05 | disposition home or self-care (01) ==
PROVIDERS: Emergency Provider Emergency Medicine; PCP Family Medicine
DX: K57.92 Diverticulitis of intestine, part unspecified, without perforation or abscess without bleeding (principal)
CPT/HCPCS: 36415; 74177; 80048; 80076; 81001; 81025; 83605; 83690; 85025; 86140; 87086; 96374; 96375; 99284; 99285; J1885; J2405; J7030; Q9967

== ENCOUNTER 2024-10-04 10:09 | Outpatient (CLI) | payer OTHER, SELFPAY ==
--- NOTE | 2024-10-04 10:15 | CRLHL7_ITS ---
For Patients: As a result of the Century Cures Act, medical imaging exams and procedure reports are released immediately into your electronic medical record. You may view this report before your referring provider. If you have questions, please contact your health care provider. INDICATION: BILATERAL SCREENING MAMMOGRAM,ASYMPTOMATIC 44 Y/O FEMALE COMPARISON: 09/16/2023, 08/20/2022 TECHNIQUE: Digital mammogram in CC and MLO projections including computer-aided detection (CAD) and tomosynthesis. BREAST COMPOSITION: There are scattered areas of fibroglandular density. FINDINGS: No suspicious findings. ASSESSMENT: BI-RADS 1 Negative RECOMMENDATION: Annual screening mammogram. A lay language report of this examination will be provided to the patient. Dictated by: Perez Awad MD @ 10/05/2024 10:23:23 (Electronically Signed)
== END 2024-10-04 10:10 | disposition home or self-care (01) ==
LOC: MAMMO 10:10
PROVIDERS: PCP Family Medicine; Visit Provider Family Medicine
DX: Z12.31 Encounter for screening mammogram for malignant neoplasm of breast (principal)
CPT/HCPCS: 77063; 77067